=== PATIENT | male | born 1995 | race African-American/Black ===

== ENCOUNTER 2017-03-02 01:20 | Emergency (ER) | payer SELFPAY ==
[~2017-03-02] VITALS: Ht 190.5 cm; Wt 90.9 kg
[~2017-03-02 01:20] MED LIST: ADAPALENE; AMOXICILLIN400 MG OR; AMOXICILLIN875 MG OR; BENZOYL PER EX; BENZOYL PER TOP; CYPROHEPTAD4 MG PO; DIFFERIN TOP; EPIDUO TOP; FLONASE NASAL50 MCG; FLUTICASONE50 MCG; GARDASIL IM; HAVRIX720 UNI1 IM; IBUPROFEN800 MG PO; MENACTRA PO; NAPROSYN500 MG PO; NO HOME MEDS; PROAIR HFA IN; SINGULAIR5 MG OR; TESSALON PER100 MG PO; TET/DIP TOX1 ML IM; VARIVAX SC; VENTOLIN HFA IN; ZYRTEC10 M1 PO; [UNRECOGNIZED DRUG - SUPPLY] IN
[2017-03-02] MEDS ORDERED: ALBUTERO2 XX (03:22)
[2017-03-02 03:30] VITALS: BP 116/70
== END 2017-03-02 03:36 | disposition home or self-care (01) | DRG 203 ==
LOC: ED 01:20
DX: J45.901 Unspecified asthma with (acute) exacerbation (principal); R06.02 Shortness of breath

== ENCOUNTER 2017-09-06 11:44 | Emergency (ER) | payer SELFPAY ==
[~2017-09-06] VITALS: Ht 190.5 cm; Wt 93.0 kg
[~2017-09-06 11:44] MED LIST changes: +ALBUTERO2 XX
[2017-09-06] MEDS ORDERED: PREDNISONE50 MG PO (12:16)
[2017-09-06] MEDS ORDERED: VENTOLIN HFA IN (12:16)
[2017-09-06] MEDS ORDERED: ZITHROMAX250 MG PO (12:16)
[2017-09-06 13:07] VITALS: BP 126/74
== END 2017-09-06 13:08 | disposition home or self-care (01) | DRG 203 ==
LOC: ED 11:44
DX: J20.9 Acute bronchitis, unspecified (principal); F17.200 Nicotine dependence, unspecified, uncomplicated

== ENCOUNTER 2018-01-06 16:58 | Emergency (ER) | payer SELFPAY ==
[~2018-01-06] VITALS: Ht 190.5 cm; Wt 100.0 kg
[~2018-01-06 16:58] MED LIST changes: +PREDNISONE50 MG PO; +ZITHROMAX250 MG PO
[2018-01-06] MEDS ORDERED: VENTOLIN HFA IN (18:52)
[2018-01-06] MEDS ORDERED: MEDDOSEPAK PO (18:52)
[2018-01-06 19:08] VITALS: BP 124/5
== END 2018-01-06 19:00 | disposition home or self-care (01) | DRG 203 ==
LOC: ED 16:58
DX: J45.901 Unspecified asthma with (acute) exacerbation (principal); F17.210 Nicotine dependence, cigarettes, uncomplicated

== ENCOUNTER 2020-12-12 21:39 | Emergency (ER) | payer SELFPAY ==
[~2020-12-12] VITALS: Ht 190.5 cm; Wt 90.9 kg
[~2020-12-12 21:39] MED LIST changes: +MEDDOSEPAK PO
[2020-12-12 22:23] LABS: HEMATOCRIT 40.5 % (39.0-50.0); HEMOGLOBIN 13.8 g/dl (14.0-18.0); MEAN CELL VOLUME 96.9 fL CALC (80.0-100.0); MEAN CORPUSCULAR HGB CONC 34.1 g/dL CAL (32.0-36.0); NEUT# 1.59 thou/uL (1.82-7.42); RED BLOOD COUNT 4.18 mill/uL (4.70-6.10); RED CELL DISTRI WIDTH 11.9 % (11.5-15.5)
[2020-12-12 22:40] LABS: URINE BILIRUBIN - DIPSTICK NEGATIVE (NEGATIVE); URINE BLOOD DIPSTICK NEGATIVE (NEGATIVE); URINE COLOR YELLOW; URINE GLUCOSE - DIPSTICK NEGATIVE (NEGATIVE); URINE KETONE NEGATIVE (NEGATIVE); URINE LEUK ESTERASE NEGATIVE (NEGATIVE); URINE NITRITE - DIPSTICK NEGATIVE (Negative); URINE PROTEIN - DIPSTICK NEGATIVE (NEG-TRACE); URINE SPECIFIC GRAVITY >=1.030; URINE UROBILINOGEN - DIPSTICK 0.2 E.U./dL (0.2)
[2020-12-12 22:44] LABS: ANION GAP 9 (6-22 (CALC)); BILIRUBIN, TOTAL 0.4 mg/dL (0.0-1.4); BUN 18 mg/dL (9-20); BUN/CREATININE RATIO 18 (12-20 (CALC)); CARBON DIOXIDE 27 mmol/l (22-30); CHLORIDE 104 mmol/l (95-108); GFR > 60 ML/MIN (>=60 (CALC)); GFR FOR AFR.AMER. > 60 ML/MIN (>=60 (CALC)); POTASSIUM 3.8 mmol/l (3.5-5.1); SGOT/AST 28 u/l (17-59); SODIUM 136 mmol/l (137-146); TOTAL PROTEIN 6.7 g/dL (6.3-8.2)
[2020-12-12 22:46] LABS: ALKALINE PHOSPHATASE 57 u/l (38-126)
[2020-12-12 22:59] VITALS: BP 114/66
[2020-12-12] MEDS ORDERED: VENTOLIN HF1 IN (23:15)
== END 2020-12-12 23:42 | disposition home or self-care (01) | DRG 313 ==
LOC: ED 21:39
PROVIDERS: Emergency Medicine
DX: R07.89 Other chest pain (principal); J45.909 Unspecified asthma, uncomplicated; E78.00 Pure hypercholesterolemia, unspecified; F17.200 Nicotine dependence, unspecified, uncomplicated

== ENCOUNTER 2021-02-12 | Emergency (ER) | payer OTHER ==
[~2021-02-12] MED LIST changes: +VENTOLIN HF1 IN
[2021-02-12] MEDS ORDERED: NAPROXEN500 MG PO (18:49)
[2021-02-12] MEDS ORDERED: CYCLOBENZAPRINE10 MG PO (18:52)
== END 2021-02-12 18:57 | disposition home or self-care (01) | DRG 552 ==
DX: S13.9XXA Sprain of joints and ligaments of unspecified parts of neck, initial encounter (principal); J45.909 Unspecified asthma, uncomplicated; E78.00 Pure hypercholesterolemia, unspecified; F17.200 Nicotine dependence, unspecified, uncomplicated; V49.40XA Driver injured in collision with unspecified motor vehicles in traffic accident, initial encounter